=== PATIENT | female | born 1995 | race Caucasian/White ===

== ENCOUNTER 2025-02-17 16:13 | Emergency (ER) | payer OTHER, SELFPAY ==
[2025-02-17 16:19] VITALS: BP 132/98; PULSE 94; TEMP 37; O2SAT 97; BMI 35.2
--- NOTE | 2025-02-17 17:49 | XR_ITS ---
[address] [address] Patient Name: AALIYAH HILARIO MRN: [id number] date: 1995 Sex: F Assigned Patient Location: ED.MAIN Current Patient Location: ED.MAIN Accession/Order Number: [id number] Exam Date: 02/17/2025 18:35 Report Date: 02/17/2025 19:45 At the request of: MANFRED TUCKER Procedure: XR lumbar spine 2-3V 3 views lumbar spine HISTORY: Lumbar radiculopathy. Adequate alignment. Adequate vertebral bodies and disc heights. Mild facet degeneration. No acute bony findings. XR/XR lumbar spine 2-3V IMPRESSION: Mild degeneration. Impression dictated by: Mike Paulino M.D. 02/17/2025 7:45 PM Dictation Location: [place] [address] Electronically authenticated by: [id number] Y Date: 02/17/2025 19:45
--- NOTE | 2025-02-17 17:52 | ED.GENADUL1 ---
HPI HPI - General Adult General Chief complaint: Back Pain/Injury Stated complaint: LOWER BACK PAIN Time Seen by Provider: 02/17/25 17:25 Source: patient Mode of arrival: walk-in Limitations: no limitations History of Present Illness HPI narrative: Patient is a 29-year-old female that presents emergency department with complaints of left-sided low back pain that has been progressive for the past few weeks since she started here in town on a new job where she is kneeling, shoveling, and twisting. She is an travel coordinator. Today her pain in the left low back greatly increased and she felt a shooting pain down her leg to her knee. She denies any previous lumbar surgery or back issues. She had to call off work secondary to the pain and did take ibuprofen without relief of her pain. She denies any bowel or bladder incontinence/retention, saddle anesthesia, or lower extremity numbness/weakness. She denies any previous issues with kidney stones. Her last menstrual cycle was January 18. She is very worried about pain control as she is going on her honeymoon next week in the [facility]. Related Data Previous Rx's ?Medication ?Instructions ?Recorded prednisone 50 mg tablet 50 mg PO DAILY 5 days #5 tabs 02/17/25 Allergies Allergy/AdvReac Type Severity Reaction Status Date / Time Sulfa (Sulfonamide Allergy Mild Hives Verified 02/17/25 16:19 Antibiotics) Opioid HPI Opioid Management Most Recent Opioid Data: Last Pain Scale 6 02/17/25, 20:21 Last MAR Pain Assessment 02/17/25, 20:21 Review of Systems ROS Status of ROS 10 or more systems reviewed and unremarkable except as noted in history and below PFSH PFSH Social History Little interest or pleasure in doing things: not at all Feeling down, depressed, or hopeless: not at all Exam Narrative Exam Narrative: General: No distress at rest, cries when moving left leg or attempting to sit up or roll over in the ED cart, age-appropriate Skin: Warm, dry, no pallor. No rash. Head: Normocephalic, atraumatic. Neck: Supple, non-tender. Eye: Pupils are equal, round and EOMI. No scleral icterus. Ears, Nose, Mouth, and Throat: No nasal mucosal hypertrophy. Oral mucosa is moist, no posterior oropharynx erythema, uvula is mid-line Cardiovascular: Regular Rate and Rhythm without murmur, gallop or rub. Respiratory: No accessory muscle use or respiratory distress. Back: No midline thoracic tenderness, midline lower lumbar tenderness, left SI joint tenderness. Musculoskeletal: Full ROM of all extremities, no calf or popliteal tenderness. 5/5 strength bilateral lower extremities. Sensations symmetrical and intact distally bilateral lower extremities. Negative clonus bilaterally. Positive straight leg raise on the left, negative on the right. GI: Abdomen is soft, non-distended, non tender to palpation. No masses appreciated. No rebound, guarding, or rigidity noted. Neurological: A&O x4. No cranial nerve dysfunction observed. No truncal ataxia. Moves all extremities. Sensation intact. Psychiatric: Cooperative and interactive. Normal mood and affect. Constitutional Vital Signs, click to edit/add: Last Vital Signs Temp 98.6 F 02/17/25 16:19 Pulse 80 02/17/25 20:31 Resp 16 02/17/25 20:31 BP 128/72 02/17/25 20:31 Pulse Ox 97 02/17/25 20:31 O2 Del Method Room Air 02/17/25 20:31 Documenting provider has reviewed patient's vital signs: yes Course Vital Signs Vital signs: Vital Signs Temperature 98.6 F 02/17/25 16:19 Pulse Rate 94 H 02/17/25 16:19 Respiratory Rate 18 02/17/25 16:19 Blood Pressure 132/98 H 02/17/25 16:19 Pulse Oximetry 97 02/17/25 16:19 Oxygen Delivery Method Room Air 02/17/25 16:19 Temperature 98.6 F 02/17/25 16:19 Pulse Rate 80 02/17/25 20:31 Respiratory Rate 16 02/17/25 20:31 Blood Pressure 128/72 02/17/25 20:31 Pulse Oximetry 97 02/17/25 20:31 Oxygen Delivery Method Room Air 02/17/25 20:31 Medical Decision Making MDM Narrative Medical decision making narrative: This is a 29-year-old female that presented to the ED with complaints of progressive left-sided low back pain that worsened today and started to travel down her left buttock to leg stopping at about the knee. She denies any bowel or bladder incontinence/retention, saddle anesthesia, or lower extremity weakness/numbness. No history of kidney stones. No history of chronic back pain or back surgery. She does bend, lift, twist a lot for her job as an travel coordinator. On arrival patient appears to be in pain, any attempts to sit up, roll over, or move left leg make her cry. 5/5 strength in bilateral lower extremities, sensation intact distally with light touch bilateral lower extremities. Strength testing of the left lower extremity produces pain in the low back. No concern for cauda equina. UA, urine hCG, lumbar x-ray ordered. IV placed, 30 mg Toradol, 0.5 mg Dilaudid, 60 mg Norflex, and lidocaine patch applied. Urine hCG negative. UA negative for occult blood or infection. X-ray read reviewed from radiologist that reports mild facet degeneration. No acute bony findings. On reexamination patient reports improvement in pain, able to move and ambulate with less pain, more controlled. She does have an hour ride home to [place], I did give her another dose of 0.5 mg Dilaudid as it was starting to fade as I was discussing lab and x-ray results with her. I also gave her a Hoffmeister 5 mg tablet for pain control to help her sleep tonight. She can continue Tylenol and I did send her a prednisone 50 mg tabs x 5-day burst. She can also buy lidocaine patches [id number]. Likely diagnosis is lumbar radiculopathy, possibly from a disc herniation. I discussed follow-up with PCP for reevaluation to see if she needs possible physical therapy or MRI. Patient verbalized understanding and agrees with plan of care. Patient discharged in stable condition, pain controlled, with plan for follow-up with PCP. Differential Diagnosis Differential Diagnosis: Lumbar radiculopathy, spondylolysis, disc herniation Lab Data Labs: Lab Results 02/17/25 Range/Units 18:50 Urine Color Lt. yellow (YELLOW) Urine Clarity Clear (CLEAR) Urine pH 6.0 (5.0-9.0) Ur Specific [place] 1.020 (1.005-1.025) Urine Protein Negative (NEG/TRACE) mg/dL Urine Glucose (UA) Negative (NEGATIVE) mg/dL Urine Ketones Trace A (NEGATIVE) mg/dL Urine Occult Blood Negative (NEGATIVE) Urine Nitrite Negative (NEGATIVE) Urine Bilirubin Negative (NEGATIVE) Urine Urobilinogen 0.2 (0.2-1.0) EU/dL Ur Leukocyte Esterase Trace A (NEGATIVE) Urine RBC 0-2 (0-2) #/HPF Urine WBC 5-10 A (NONE SEEN) #/HPF Ur Squamous Epith Cells Rare (NONE/RARE) #/LPF Ur Transition Epith Cell Rare A (NONE SEEN) #/LPF Urine Crystals None seen (None Seen) #/HPF Urine Bacteria Trace A (NONE SEEN) #/HPF Urine Casts None seen (NONE SEEN) #/LPF Urine Mucus None seen (NONE SEEN) Ur Culture Indicated? Yes-[facility] [place] Urine HCG, Qual Negative (NEGATIVE) Imaging Data Lumbar x-ray: Attestation: I have reviewed the pertinent imaging results. Radiologist's impression: ITS Impressions Lumbar Spine X-Ray 02/17/25 17:49 IMPRESSION: Mild degeneration. Impression dictated by: Mike Paulino M.D. 02/17/2025 7:45 PM Dictation [facility] Electron[facility] authenticated by: [id number] Y Date: 02/17/2025 19:45 Discharge Plan Discharge Chief Complaint: Back Pain/Injury Clinical Impression: Lumbar radiculopathy Patient Disposition: Home, Self-Care Time of Disposition Decision: 20:06 Condition: Good Mode of Transportation: Private Vehicle Prescriptions / Home Meds: New prednisone 50 mg tablet 50 mg PO DAILY 5 Days Qty: 5 0RF Print Language: Kyrgyz Instructions: Lumbar Radiculopathy (ED), Lower Back Exercises (ED) Referrals: Physician,Non-Staff, MD [Primary Care Provider] - 1 week Discharge Date/Time: 02/17/25 20:34
[2025-02-17] MEDS: ORPHENADRINE 60 MG/2 ML VIAL IV (18:17)
[2025-02-17] MEDS: LIDOCAINE 5% PATCH 1 PATCH TOPICAL (18:17)
[2025-02-17] MEDS: HYDROMORPHONE HCL 0.5 MG/0.5 ML SYRINGE IV ×2 (18:17→20:21)
[2025-02-17] MEDS: KETOROLAC TROMETHAMINE 30 MG/ML VIAL IVP (18:17)
[2025-02-17 18:55] LABS: Glucose Urine UA NEGATIVE (NEGATIVE)
[2025-02-17 19:01] LABS: HCG Qualitative Urine* NEGATIVE (NEGATIVE)
[2025-02-17 19:05] LABS: Cast Seen? NONE SEEN #/LPF (NONE SEEN); Crystals Seen? None Seen #/HPF (None Seen); Urine Culture Indicated YES-FRMC
[2025-02-17] MEDS: HYDROCODONE/ACET 5-325 MG TABLET 1 TAB PO (20:21)
[2025-02-17 20:31] VITALS: BP 128/72; PULSE 80; O2SAT 97
== END 2025-02-17 20:34 | disposition home or self-care (01) ==
PROVIDERS: Physician Assistant; Emergency Provider Emergency Medicine
DX: M54.16 Radiculopathy, lumbar region (principal)
CPT/HCPCS: 72100; 81001; 84703; 87086; 96374; 96375; 96376; 99285; J1171; J1885; J2360